=== PATIENT | male | born 1945 | race Caucasian/White ===

== ENCOUNTER 2020-02-04 13:05 | Outpatient (CLI) | payer MEDICARE, OTHER ==
[2020-02-04 15:41] LABS: BASOPHILS % (AUTO) 0.4 %; HGB - HEMOGLOBIN 12.5 g/dL (14.0-18.0); MEAN CORPUSCULAR HEMOGLOBIN 34.2 pg (27.0-31.0); MEAN CORPUSCULAR HGB CONC 34.2 g/dL (32.0-36.0); MEAN CORPUSCULAR VOLUME 100.3 fL (80.0-94.0); MEAN PLATELET VOLUME 10.2 fL (7.4-11.4); MONOCYTES % (AUTO) 5.2 %; PLT - PLATELET COUNT 110 10^3/uL (130-450); RED BLOOD COUNT 3.65 10^6/uL (4.70-6.10); RED CELL DISTRIBUTION WIDTH 14.5 % (12.0-15.0); WHITE BLOOD COUNT 2.7 x10^3/uL (4.8-10.8)
[2020-02-04 15:44] LABS: ALBUMIN 4.1 g/dL (3.2-5.5); BILIRUBIN,URINE NEGATIVE (NEGATIVE); CREATININE 1.2 mg/dL (0.6-1.2); GLUCOSE, URINE (UA) NEGATIVE (NEGATIVE); KETONES,URINE (UA) NEGATIVE (NEGATIVE); LEUKOCYTE ESTERASE, URINE NEGATIVE (NEGATIVE); NITRITE,URINE NEGATIVE (NEGATIVE); OCCULT BLOOD,URINE NEGATIVE (NEGATIVE); PH,URINE 5.5 PH (5.0-7.5); PHOSPHORUS 3.6 mg/dL (2.5-4.6); PROTEIN,URINE NEGATIVE (NEGATIVE); UROBILINOGEN,URINE 0.2 (NORMAL) E.U./dL (NORMAL)
[2020-02-04 15:45] LABS: ABNORMAL LYMPHS % (MANUAL) 0 %; BAND NEUTROPHILS % (MANUAL) 0 %
[2020-02-04 15:49] LABS: CREATININE,URINE 197.3 mg/dL; PROTEIN/CREATININE RATIO,URINE 0.1 (<=0.2)
[2020-02-04 15:55] LABS: BACTERIA,URINE None Seen /HPF (None Seen); CLARITY,URINE CLEAR (CLEAR); RBC,URINE None Seen /HPF (0-5); SQUAMOUS EPITHELIAL CELL,UR NONE SEEN (<= Few)
[2020-02-04 15:59] LABS: EOSINOPHILS # (MANUAL) 0.2 10^3/uL (0-0.7); LYMPHOCYTES # (MANUAL) 1.2 10^3/uL (1.5-3.5); LYMPHOCYTES % (MANUAL) 44 %; MONOCYTES # (MANUAL) 0.1 10^3/uL (0.0-1.0); PLATELET ESTIMATE, MANUAL DECREASED (<130,000) (NORMAL); PLATELET MORPHOLOGY NORMAL APPEARANCE (NORMAL); RBC MORPHOLOGY (MULTIPLE) 1+ MACROCYTOSIS (NORMAL)
[2020-02-04 16:00] LABS: DIFFERENTIAL COMMENT MANUAL DIFFERENTIAL
[2020-02-04 20:01] LABS: HEMOGLOBIN A1c% 6.7 % (4.27-6.07)
== END 2020-02-04 13:06 | disposition home or self-care (01) ==
LOC: LAB.S 13:05
PROVIDERS: ATTEND Internal Medicine Nephrology
DX: I10 Essential (primary) hypertension (principal); R53.83 Other fatigue; E78.00 Pure hypercholesterolemia, unspecified; E11.40 Type 2 diabetes mellitus with diabetic neuropathy, unspecified
CPT/HCPCS: 36415; 80069; 81001; 82306; 82570; 83036; 83970; 84156; 85025; 87086

== ENCOUNTER 2021-03-16 13:47 | Outpatient (CLI) | payer MEDICARE, OTHER ==
--- NOTE | 2021-03-16 17:01 | CT Report ---
PROCEDURE: Low Dose Lung Cancer Screen INDICATIONS: EX SMOKER TECHNIQUE: Noncontrast low-dose images were acquired from the pulmonary apices to the posterior costophrenic ang les. Multiplanar MIP reformats were then acquired. For radiation dose reduction, the following was used: automated exposure control, adjustment of mA and/or kV according to patient size. COMPARISON: None. FINDINGS: Image quality: Excellent. Lungs and pleura: There is a fissural nodule in the right major fissure measuring approximately 1.2 x 0.6 cm on image 63/4, which may represent a fissural lymph node. No other pulmonary nodules noted. Mild emphysematous change. Mediastinum: Heart size is normal. No pericardial effusion. At least moderate coronary artery calci fications. No mediastinal adenopathy by size criteria. Thoracic aorta and central pulmonary arteries are normal in size. Esophagus is normal in caliber. No hiatal hernia. Bones and chest wall: No suspicious bony lesions. No vertebral body compression fractures. No axil nakia or supraclavicular adenopathy by size criteria. Visualized thyroid is unremarkable. Abdomen: Visualized upper abdomen solid organs and bowel loops appear normal in the absence of contr ast. IMPRESSION: 1. LungRads Category 3: Probably benign findings-short term follow up suggested; includes nodules wit h a low likelihood of becoming a clinically significant cancer: There is a probable fissural lymph no de measuring 1.2 x 0.6 cm in the right major fissure. 2. 6 month follow-up low-dose noncontrast CT of the chest is recommended for further evaluation. 3. Clinically significant or potentially clinically significant findings (nonlung cancer): Mild centr ilobular emphysema, moderate coronary artery calcifications. CLINICAL RECOMMENDATION STATEMENTS: In patients <35 years with an ITN detected on CT, MRI, or extrathyroidal ultrasound, the Committee re commends further evaluation with dedicated thyroid ultrasound if the nodule is "e1 cm and has no susp icious imaging features, and if the patient has normal life expectancy. In patients "e35 years with an ITN detected on CT, MRI, or extrathyroidal ultrasound, the Committee r ecommends further evaluation with dedicated thyroid ultrasound if the nodule is "e1.5 cm and has no s uspicious imaging features, and if the patient has normal life expectancy. (ACR, 2014) Reviewed by: Toi Veras MD on 03/16/2021 5:00 PM PDT Approved by: Toi Veras MD on 03/16/2021 5:00 PM PDT Station ID: [id number]
== END 2021-03-16 13:48 | disposition home or self-care (01) ==
LOC: DI 13:47
PROVIDERS: ATTEND Nurse Practitioner Family
DX: Z12.2 Encounter for screening for malignant neoplasm of respiratory organs (principal); Z87.891 Personal history of nicotine dependence; J43.2 Centrilobular emphysema

== ENCOUNTER 2021-08-29 14:51 | Outpatient (CLI) | payer MEDICARE, OTHER ==
--- NOTE | 2021-08-29 17:03 | CT Report ---
PROCEDURE: Low Dose Lung Cancer Screen INDICATIONS: ABN FINDINGS ON CHEST CT TECHNIQUE: Noncontrast low-dose images were acquired from the pulmonary apices to the posterior costophrenic ang les. Multiplanar MIP reformats were then acquired. For radiation dose reduction, the following was used: automated exposure control, adjustment of mA and/or kV according to patient size. COMPARISON: CT lung screen 03/16/2021 FINDINGS: Image quality: Excellent. Lungs and pleura: Previous identified right fissural nodule measuring approximately 1.2 x 0.7 cm on series 4 image 180 is unchanged. No new nodules are identified. No effusions or consolidations. Mediastinum: Heart size is normal. No pericardial effusion. No mediastinal adenopathy by size crit eria. Thoracic aorta and central pulmonary arteries are normal in size. Esophagus is normal in osamn jesus. No hiatal hernia. Bones and chest wall: No suspicious bony lesions. No vertebral body compression fractures. No axil nakia or supraclavicular adenopathy by size criteria. The thyroid is not visualized secondary to ayo fact. Abdomen: Visualized upper abdomen solid organs and bowel loops appear normal in the absence of contr ast. IMPRESSION: Stable pulmonary nodule compared to 2020. Lung rads category 2. Recommend interval CT screening in one year. CLINICAL RECOMMENDATION STATEMENTS: In patients <35 years with an ITN detected on CT, MRI, or extrathyroidal ultrasound, the Committee re commends further evaluation with dedicated thyroid ultrasound if the nodule is "e1 cm and has no susp icious imaging features, and if the patient has normal life expectancy. In patients "e35 years with an ITN detected on CT, MRI, or extrathyroidal ultrasound, the Committee r ecommends further evaluation with dedicated thyroid ultrasound if the nodule is "e1.5 cm and has no s uspicious imaging features, and if the patient has normal life expectancy. (ACR, 2014) Reviewed by: Crystal Underwood MD on 08/29/2021 5:01 PM PDT Approved by: Crystal Underwood MD on 08/29/2021 5:01 PM PDT Station ID: [id number]
== END 2021-08-29 14:52 | disposition home or self-care (01) ==
LOC: DI 14:51
PROVIDERS: ATTEND Nurse Practitioner Family
DX: Z12.2 Encounter for screening for malignant neoplasm of respiratory organs (principal); R91.1 Solitary pulmonary nodule; Z87.891 Personal history of nicotine dependence